=== PATIENT | female | born 1995 | race Caucasian/White ===

== ENCOUNTER 2017-09-17 15:52 | Emergency (ER) | payer OTHER, BC ==
[~2017-09-17] VITALS: Ht 160 cm; Wt 63.7 kg
[2017-09-17 15:59] VITALS: BP 137/90
[2017-09-17] MEDS ORDERED: TRAMADOL HCL50 MG PO (17:12)
== END 2017-09-17 17:36 | disposition home or self-care (01) ==
LOC: EME 15:52
DX: S02.2XXA Fracture of nasal bones, initial encounter for closed fracture (principal); Y04.0XXA Assault by unarmed brawl or fight, initial encounter; Y99.0 Civilian activity done for income or pay
CPT/HCPCS: 70160; 99281; 99284